=== PATIENT | female | born 1975 | race Hispanic/Latino ===

== ENCOUNTER → 2024-10-23 | Outpatient (CLI) | payer OTHER ==
--- NOTE | 2024-10-24 08:51 | HMCIMG ---
LUMBAR W OBLIQUES AND FLEX/EXT REASON: RT LOWER BACK PAIN, LEG LENGTH DISCREPANCY COMPARISON: None TECHNIQUE: 7 lumbar spine images are obtained including oblique and flexion and extension views. FINDINGS: There are normal-appearing lumbar vertebral bodies. There is no evidence of spondylolysis or spondylolisthesis. Vertebral body alignment is normal in the neutral view. Flexion and extension views show no subluxation. Disc interspace heights are preserved throughout. There are some mild degenerative changes in the facets at L4-5 and L5-S1. Surrounding soft tissues appear unremarkable. IMPRESSION: 1. Mild degenerative changes in the facets. 2. Otherwise unremarkable exam including flexion and extension as well as oblique views.
== END | disposition home or self-care (01) ==
LOC: OIH 16:04
PROVIDERS: ATTEND Physical Medicine & Rehabilitation
DX: M47.817 Spondylosis without myelopathy or radiculopathy, lumbosacral region (principal); M21.70 Unequal limb length (acquired), unspecified site; M54.50 Low back pain, unspecified
CPT/HCPCS: 72110

== ENCOUNTER → 2024-10-24 | Outpatient (CLI) | payer OTHER ==
--- NOTE | 2024-10-25 10:02 | HMCIMG ---
SCOLIOSIS 1VW REASON: LOW BACK PAIN COMPARISON: None TECHNIQUE: 3 view AP scoliosis survey was performed. FINDINGS: There is broad-based to levoscoliosis of the upper thoracic spine, 13 degrees. There is dextroscoliosis at the thoracolumbar junction, 10 degrees. There are no anomalous appearing vertebral bodies. IMPRESSION: 1. Mild S-shaped thoracolumbar scoliosis.
== END | disposition home or self-care (01) ==
LOC: OIH 16:34
PROVIDERS: ATTEND Physical Medicine & Rehabilitation
DX: M41.85 Other forms of scoliosis, thoracolumbar region (principal); M54.50 Low back pain, unspecified; M21.70 Unequal limb length (acquired), unspecified site
CPT/HCPCS: 72081